=== PATIENT | female | born 1980 | race African-American/Black ===

== ENCOUNTER 2020-11-13 22:48 | Inpatient (IN) | payer OTHER, MEDICAID ==
[~2020-11-13] VITALS: Ht 162.6 cm; Wt 85.3 kg
[2020-11-13] MEDS: ALBUTEROL 6.7GM HFA INHALER ORI ONE (00:45)
[2020-11-13] MEDS ORDERED: DEXAMETHASONE 10 MG/ML VIAL IV ONE (23:15)
[2020-11-13] MEDS ORDERED: SODIUM CHLORIDE 0.9% 250 ML IV ONE (23:15)
[2020-11-13] MEDS ORDERED: VANCOMYCIN 1 G PREMIX 200 ML IV ONE (23:15)
[2020-11-13] MEDS ORDERED: PIPERACILLIN/TAZ 3.375G PREMIX 50 ML IV ONE (23:15)
[2020-11-13 23:33] LABS: BASOPHILS % 0.2 % (0.0-2.0); EOSINOPHILS % 0.9 % (0.0-5.0); HEMATOCRIT. 36.7 % (36.0-48.0); HEMOGLOBIN. 13.1 g/dL (12.0-16.0); MEAN CORPUSCULAR HEMOGLOBIN 31.9 pg (28.0-32.0); MEAN CORPUSCULAR VOLUME 89.4 fL (81.0-99.0); MEAN PLATELET VOLUME 8.6 fl (7.4-10.4); MONOCYTES % 3.4 % (2.0-8.0); NEUTROPHILS % 87.5 % (40.0-76.0); PLATELET 340 x1000/uL (130-400); RED BLOOD CELL COUNT 4.11 mill/uL (4.2-5.4); RED CELL DISTRIBUTION WIDTH 13.9 % (11.6-14.6)
[2020-11-13 23:38] LABS: CHLORIDE 96 mEq/L (98-107)
[2020-11-13 23:42] LABS: INR 1.1; PROTHROMBIN TIME 11.4 sec (9.6-11.0)
[2020-11-13 23:52] LABS: HCG SCREEN NEGATIVE
[2020-11-14] MEDS ORDERED: DIPHENHYDRAMINE 50MG/ML VIAL IV ONE (00:15)
[2020-11-14] MEDS: ALBUTEROL 6.7GM HFA INHALER ORI ONE (00:15)
[2020-11-14] MEDS ORDERED: POTASSIUM CHLORIDE 20MEQ TABLET SR PO NR (00:30)
[2020-11-14 01:04] LABS: CLARITY URINE CLEAR (CLEAR); COLOR URINE YELLOW (YELLOW); KETONES URINE NEGATIVE (NEGATIVE); LEUKOCYTE ESTERASE URINE 2+ (NEGATIVE); NITRITE URINE NEGATIVE (NEGATIVE); OCCULT BLOOD URINE TRACE (NEGATIVE); PH URINE 6.5 (4.5-8.0); PROTEIN URINE TRACE (NEGATIVE); SPECIFIC GRAVITY URINE 1.011 (1.005-1.030); UROBILINOGEN URINE 0.2 E.U./dL (0.2-1.0)
[2020-11-14 03:59] VITALS: BP 118/64
[2020-11-14 04:00] VITALS: BP 100/70
[2020-11-14] MEDS ORDERED: ACETAMINOPHEN 325MG TABLET PO PRN (05:45)
[2020-11-14] MEDS: CEFTRIAXONE 1,000 MG in DEXTROSE 5% WATER 50 ML IV SCH (07:48)
[2020-11-14 08:00] VITALS: BP 108/72
[2020-11-14] MEDS ORDERED: CEFTRIAXONE 1 G PREMIX 50 ML IV SCH (08:30)
[2020-11-14] MEDS: FAMOTIDINE 20MG TABLET PO SCH ×2 (08:35→20:41)
[2020-11-14] MEDS: AZITHROMYCIN 500 MG in DEXT 5% WATER 250 ML IV SCH (08:35)
[2020-11-14] MEDS: DEXAMETHASONE 4MG TABLET PO SCH ×3 (08:35→20:42)
[2020-11-14] MEDS: ENOXAPARIN 40MG/0.4ML SYR SUBCUT SCH (08:35)
[2020-11-14 09:47] LABS: HEMATOCRIT. 33.4 % (36.0-48.0); HEMOGLOBIN. 11.9 g/dL (12.0-16.0); MEAN CORPUSCULAR HEMOGLOBIN 32.1 pg (28.0-32.0); MEAN CORPUSCULAR VOLUME 90.2 fL (81.0-99.0); MEAN PLATELET VOLUME 8.9 fl (7.4-10.4); PLATELET 335 x1000/uL (130-400); RED BLOOD CELL COUNT 3.71 mill/uL (4.2-5.4); RED CELL DISTRIBUTION WIDTH 13.8 % (11.6-14.6)
[2020-11-14 10:02] LABS: CHLORIDE 102 mEq/L (98-107)
[2020-11-14] MEDS ORDERED: POTASSIUM CHLORIDE 20MEQ/PACKET PO NR (11:30)
[2020-11-14 12:00] VITALS: BP 114/68
[2020-11-14 13:02] LABS: PLATELET ESTIMATE NORMAL
[2020-11-14] MEDS ORDERED: ALBUTEROL (0.083%) 2.5MG/3ML NEB HHN PRN (15:15)
[2020-11-14] MEDS ORDERED: ERGOCALCIFEROL 50000UNITS CAPSULE PO SCH (15:15)
[2020-11-14 16:00] VITALS: BP 110/74
[2020-11-14 16:00] LABS: BG BASE EXCESS -0.6 mmol/L (-2.0-2.0); BG CARBOXYHEMOGLOBIN 0.3 % (0.5-1.5); BG DEOXYHEMOGLOBIN 8.3 % (0.0-5.0); BG HCO3 ACT 22.8 mmol/L (22.0-26.0); BG METHEMOGLOBIN 0.2 % (0.0-1.5); BG OXYGEN SATURATION 91.7 % (92.0-98.5); BG OXYHEMOGLOBIN 91.2 % (94.0-97.0); BG PCO2 33.8 mmHg (35.0-45.0); BG PH 7.447 (7.350-7.450); BG PO2 64.7 mmHg (75.0-100.0); BG SAMPLE SITE RIGHT RADIAL; BG VENT MODE NASAL CANNULA
[2020-11-14 20:00] VITALS: BP 114/78
[2020-11-14] MEDS: ASCORBIC ACID 500 MG TABLET PO SCH (20:41)
[2020-11-14] MEDS: GUAIFENESIN 600MG ER TABLET PO SCH (20:42)
[2020-11-15] VITALS: BP 114/83
[2020-11-15 04:00] VITALS: BP 111/73
[2020-11-15] MEDS: DEXAMETHASONE 4MG TABLET PO SCH ×4 (05:01→20:09)
[2020-11-15 08:00] VITALS: BP 120/96
[2020-11-15 08:48] LABS: BG CARBOXYHEMOGLOBIN 0.2 % (0.5-1.5); BG DEOXYHEMOGLOBIN 6.9 % (0.0-5.0); BG FRACTION INSPIRED OXYGEN 32; BG HCO3 ACT 22.9 mmol/L (22.0-26.0); BG METHEMOGLOBIN 0.2 % (0.0-1.5); BG OXYGEN SATURATION 93.1 % (92.0-98.5); BG OXYHEMOGLOBIN 92.7 % (94.0-97.0); BG PCO2 35.8 mmHg (35.0-45.0); BG PH 7.424 (7.350-7.450); BG PO2 67.8 mmHg (75.0-100.0); BG SAMPLE SITE RIGHT RADIAL; BG TOTAL HEMOGLOBIN 12.9 g/dL (12.0-18.0); BG VENT MODE NASAL CANNULA
[2020-11-15] MEDS: ENOXAPARIN 40MG/0.4ML SYR SUBCUT SCH (09:14)
[2020-11-15] MEDS: ASCORBIC ACID 500 MG TABLET PO SCH ×2 (09:14→20:08)
[2020-11-15] MEDS: GUAIFENESIN 600MG ER TABLET PO SCH ×2 (09:14→20:08)
[2020-11-15] MEDS: CEFTRIAXONE 1,000 MG in DEXTROSE 5% WATER 50 ML IV SCH (09:14)
[2020-11-15] MEDS: FAMOTIDINE 20MG TABLET PO SCH ×2 (09:14→20:08)
[2020-11-15] MEDS: AZITHROMYCIN 500 MG in DEXT 5% WATER 250 ML IV SCH (11:05)
[2020-11-15 12:00] VITALS: BP 97/67
[2020-11-15 16:00] VITALS: BP 104/65
[2020-11-15 20:00] VITALS: BP 114/73
[2020-11-16] VITALS: BP 113/69
[2020-11-16] MEDS: ALBUTEROL (0.083%) 2.5MG/3ML NEB HHN SCH ×4 (02:36→20:30)
[2020-11-16] MEDS: DEXAMETHASONE 4MG TABLET PO SCH ×4 (03:04→20:41)
[2020-11-16 04:00] VITALS: BP 109/74
[2020-11-16 07:06] LABS: HEMATOCRIT. 36.3 % (36.0-48.0); HEMOGLOBIN. 12.5 g/dL (12.0-16.0); MEAN CORPUSCULAR HEMOGLOBIN 31.4 pg (28.0-32.0); MEAN CORPUSCULAR VOLUME 90.7 fL (81.0-99.0); MEAN PLATELET VOLUME 8.9 fl (7.4-10.4); PLATELET 388 x1000/uL (130-400); RED CELL DISTRIBUTION WIDTH 13.8 % (11.6-14.6)
[2020-11-16 07:11] LABS: CHLORIDE 101 mEq/L (98-107)
[2020-11-16 08:00] VITALS: BP 163/72
[2020-11-16] MEDS: AZITHROMYCIN 500 MG in DEXT 5% WATER 250 ML IV SCH (10:08)
[2020-11-16] MEDS: CEFTRIAXONE 1,000 MG in DEXTROSE 5% WATER 50 ML IV SCH (10:08)
[2020-11-16] MEDS: ENOXAPARIN 40MG/0.4ML SYR SUBCUT SCH (10:08)
[2020-11-16] MEDS: FAMOTIDINE 20MG TABLET PO SCH ×2 (10:12→20:42)
[2020-11-16] MEDS: ASCORBIC ACID 500 MG TABLET PO SCH ×2 (10:12→20:42)
[2020-11-16] MEDS: GUAIFENESIN 600MG ER TABLET PO SCH ×2 (10:12→20:42)
[2020-11-16 12:00] VITALS: BP 113/70
[2020-11-16 16:00] VITALS: BP 105/67
[2020-11-16 18:21] LABS: PLATELET ESTIMATE NORMAL
[2020-11-16 20:00] VITALS: BP 106/63
[2020-11-17] VITALS: BP 113/67
[2020-11-17] MEDS: ALBUTEROL (0.083%) 2.5MG/3ML NEB HHN SCH ×4 (01:31→22:08)
[2020-11-17] MEDS: DEXAMETHASONE 4MG TABLET PO SCH ×2 (03:44→08:30)
[2020-11-17 04:00] VITALS: BP 108/67
[2020-11-17 06:19] LABS: HEMATOCRIT. 33.7 % (36.0-48.0); HEMOGLOBIN. 11.8 g/dL (12.0-16.0); MEAN CORPUSCULAR HEMOGLOBIN 31.6 pg (28.0-32.0); MEAN CORPUSCULAR VOLUME 90.5 fL (81.0-99.0); MEAN PLATELET VOLUME 8.8 fl (7.4-10.4); PLATELET 410 x1000/uL (130-400); RED BLOOD CELL COUNT 3.72 mill/uL (4.2-5.4); RED CELL DISTRIBUTION WIDTH 13.5 % (11.6-14.6)
[2020-11-17 06:25] LABS: CHLORIDE 102 mEq/L (98-107)
[2020-11-17] MEDS: CEFTRIAXONE 1,000 MG in DEXTROSE 5% WATER 50 ML IV SCH (06:56)
[2020-11-17 08:00] VITALS: BP 113/66
[2020-11-17] MEDS: GUAIFENESIN 600MG ER TABLET PO SCH ×2 (08:29→21:00)
[2020-11-17] MEDS: ASCORBIC ACID 500 MG TABLET PO SCH ×2 (08:29→21:00)
[2020-11-17] MEDS: AZITHROMYCIN 500 MG in DEXT 5% WATER 250 ML IV SCH (08:29)
[2020-11-17] MEDS: FAMOTIDINE 20MG TABLET PO SCH ×2 (08:29→21:00)
[2020-11-17] MEDS: ENOXAPARIN 40MG/0.4ML SYR SUBCUT SCH (08:30)
[2020-11-17 12:00] VITALS: BP 107/65
[2020-11-17] MEDS ORDERED: LIDOCAINE HCL/PF 1% 2ML VIAL ONE (14:19)
[2020-11-17 16:00] VITALS: BP 105/60
[2020-11-17 16:20] LABS: BG BASE EXCESS 0.7 mmol/L (-2.0-2.0); BG CARBOXYHEMOGLOBIN 0.3 % (0.5-1.5); BG DEOXYHEMOGLOBIN 8.2 % (0.0-5.0); BG FRACTION INSPIRED OXYGEN 21; BG HCO3 ACT 23.8 mmol/L (22.0-26.0); BG METHEMOGLOBIN 0.2 % (0.0-1.5); BG OXYGEN SATURATION 91.8 % (92.0-98.5); BG OXYHEMOGLOBIN 91.3 % (94.0-97.0); BG PCO2 33.2 mmHg (35.0-45.0); BG PH 7.473 (7.350-7.450); BG PO2 61.9 mmHg (75.0-100.0); BG SAMPLE SITE RIGHT RADIAL; BG TOTAL HEMOGLOBIN 12.9 g/dL (12.0-18.0); BG VENT MODE ROOM AIR
[2020-11-17 18:42] LABS: PLATELET ESTIMATE INCREASED
[2020-11-17 20:00] VITALS: BP 103/62
[2020-11-18] VITALS: BP 110/56
[2020-11-18] MEDS: ALBUTEROL (0.083%) 2.5MG/3ML NEB HHN SCH ×4 (02:33→20:09)
[2020-11-18 04:00] VITALS: BP 96/62
[2020-11-18 06:37] LABS: HEMATOCRIT. 33.1 % (36.0-48.0); HEMOGLOBIN. 11.4 g/dL (12.0-16.0); MEAN CORPUSCULAR VOLUME 89.9 fL (81.0-99.0); MEAN PLATELET VOLUME 8.6 fl (7.4-10.4); PLATELET 429 x1000/uL (130-400); RED BLOOD CELL COUNT 3.68 mill/uL (4.2-5.4); RED CELL DISTRIBUTION WIDTH 13.5 % (11.6-14.6)
[2020-11-18 07:05] LABS: CHLORIDE 103 mEq/L (98-107)
[2020-11-18 08:00] VITALS: BP 107/56
[2020-11-18] MEDS ORDERED: POTASSIUM CHLORIDE 20MEQ TABLET SR PO SCH (09:00)
[2020-11-18] MEDS: CEFTRIAXONE 1,000 MG in DEXTROSE 5% WATER 50 ML IV SCH (09:05)
[2020-11-18] MEDS: ENOXAPARIN 40MG/0.4ML SYR SUBCUT SCH (09:05)
[2020-11-18] MEDS: GUAIFENESIN 600MG ER TABLET PO SCH ×2 (09:05→21:37)
[2020-11-18] MEDS: DEXAMETHASONE 4MG TABLET PO SCH (09:05)
[2020-11-18] MEDS: ASCORBIC ACID 500 MG TABLET PO SCH ×2 (09:05→21:37)
[2020-11-18] MEDS: AZITHROMYCIN 500 MG in DEXT 5% WATER 250 ML IV SCH (10:55)
[2020-11-18] MEDS: FAMOTIDINE 20MG TABLET PO SCH ×2 (10:55→21:37)
[2020-11-18 12:00] VITALS: BP 101/59
[2020-11-18 16:00] VITALS: BP 93/67
[2020-11-18 16:00] LABS: PLATELET ESTIMATE INCREASED
[2020-11-18 20:00] VITALS: BP 104/69
[2020-11-19] VITALS: BP 96/70
[2020-11-19] MEDS: ALBUTEROL (0.083%) 2.5MG/3ML NEB HHN SCH ×2 (00:55→09:35)
[2020-11-19 04:00] VITALS: BP 101/72
[2020-11-19 07:57] VITALS: BP 96/72
[2020-11-19] MEDS: ENOXAPARIN 40MG/0.4ML SYR SUBCUT SCH (08:43)
[2020-11-19] MEDS: ASCORBIC ACID 500 MG TABLET PO SCH (08:43)
[2020-11-19] MEDS: GUAIFENESIN 600MG ER TABLET PO SCH (08:43)
[2020-11-19] MEDS: FAMOTIDINE 20MG TABLET PO SCH (08:43)
[2020-11-19] MEDS: DEXAMETHASONE 4MG TABLET PO SCH (08:44)
[2020-11-19 12:00] VITALS: BP 101/54
[2020-11-19] MEDS ORDERED: DEXA6TAB MT (12:21)
[2020-11-19] MEDS ORDERED: PANT40TA51 MT (12:21)
[2020-11-19] MEDS ORDERED: GUAI600T44 PO (12:21)
[2020-11-19] MEDS ORDERED: ASCO500T20 PO (12:21)
[2020-11-19] MEDS ORDERED: VITA50005 MT (12:21)
[2020-11-19 13:13] VITALS: BP 101/54
[2020-11-20] MEDS ORDERED: DEXAMETHASONE 6MG TABLET PO SCH (09:00)
== END 2020-11-19 14:00 | disposition home or self-care (01) | DRG 871 ==
LOC: ER 23:36 → 7WST 11-14 00:27 → EDBEDREQTM 11-14 00:30 → EDBEDREQDT 11-14 00:30 → EDBEDREQ 11-14 00:30 → ENRESERV 11-14 02:21 → 7WST 11-14 04:12 → 5WST 11-15 23:20
PROVIDERS: ADMIT Internal Medicine; ATTEND Internal Medicine
DX: A41.89 Other specified sepsis (principal); U07.1 COVID-19; J96.01 Acute respiratory failure with hypoxia; J12.82 Pneumonia due to coronavirus disease 2019; N39.0 Urinary tract infection, site not specified; E44.1 Mild protein-calorie malnutrition; E87.1 Hypo-osmolality and hyponatremia; J45.909 Unspecified asthma, uncomplicated; E87.6 Hypokalemia; Z82.5 Family history of asthma and other chronic lower respiratory diseases; Z87.891 Personal history of nicotine dependence; Z98.891 History of uterine scar from previous surgery; Z68.32 Body mass index [BMI] 32.0-32.9, adult
CPT/HCPCS: 36415; 36600; 71045; 80048; 80053; 81003; 82375; 82728; 82805; 83605; 83615; 83880; 84145; 84484; 84703; 85025; 85379; 85384; 86140; 87426; 93005; 94640; 99291; J0456; J0696; J1100; J1200; J1650; J2543; J3370; J3490; J7030; J7040; J7060; J8540; U0003; U0005